=== PATIENT | male | born 1965 | race Caucasian/White ===

== ENCOUNTER → 2025-02-25 | Day surgery (SDC) | payer BC ==
[~2025-02-25] MED LIST: CENTRUM ADULTS1 EACH PO; FENTANYL CITRATE/PF 100MCG/2 ML INJ ONE; HYOSCYAMINE SULFATE 0.5 MG/ML INJ ONE; LIDOCAINE HCL 2% LOCAL INJ 5 ML SDV VIAL INJ ONE; MIDAZOLAM HCL 2 MG/2 ML VIAL ONE; PROPOFOL IV EMULSION 50 ML IV ONE
[2025-02-25] MEDS: LACTATED RINGER'S 1,000 ML ONE (08:15)
[2025-02-25 09:51] VITALS: TEMP 97.5
[2025-02-25 10:20] VITALS: BP 126/90; PULSE 77; RESP 18; O2SAT 98
== END | disposition home or self-care (01) ==
LOC: OR 07:00
PROVIDERS: ATTEND Internal Medicine Gastroenterology
DX: D12.4 Benign neoplasm of descending colon (principal); K64.8 Other hemorrhoids; Z68.30 Body mass index [BMI] 30.0-30.9, adult; Z86.13 Personal history of malaria; Z01.810 Encounter for preprocedural cardiovascular examination
CPT/HCPCS: 45385; 93005; J1980; J2003; J2250; J2704; J3010; J7121; 45378